=== PATIENT | male | born 1945 | race Caucasian/White ===

== ENCOUNTER 2024-06-14 10:39 | Emergency (ER) | payer MEDICARE, OTHER ==
[~2024-06-14] VITALS: Ht 177.8 cm; Wt 68.0 kg
[2024-06-14 11:06] VITALS: BP 126/67; PULSE 108; RESP 16; TEMP 97.9; O2SAT 94
[2024-06-14 11:10] VITALS: O2SAT 98
[2024-06-14] MEDS: KETOROLAC 30 MG/ML VIAL IM ONE (12:13)
[2024-06-14] MEDS ORDERED: DICL20GE TP (13:13)
[2024-06-14] MEDS ORDERED: ACET-8905 PO (13:13)
[2024-06-14 13:26] VITALS: BP 135/82; PULSE 88; RESP 16; TEMP 98; O2SAT 98
== END 2024-06-14 13:26 | disposition home or self-care (01) ==
LOC: MED 10:39
DX: M77.9 Enthesopathy, unspecified (principal); M06.9 Rheumatoid arthritis, unspecified; Z79.899 Other long term (current) drug therapy
CPT/HCPCS: 73030; 93005; 96372; 99283; J1885